=== PATIENT | female | born 1955 ===

== ENCOUNTER 2017-11-10 16:25 | Observation (INO) | payer OTHER ==
[2017-11-10 17:43] LABS: CKMB 2.6 ng/mL (0-6.6); Troponin I Less than 0.010 ng/mL (< 0.028)
[2017-11-10] MEDS ORDERED: Ondansetron HCl/PF 4 MG/2 ML Vial IVP PRN (19:37)
[2017-11-10] MEDS ORDERED: Acetaminophen 325 MG TAB PO PRN (19:37)
[2017-11-10] MEDS ORDERED: Ondansetron ODT 4 MG TAB SL PRN (19:37)
[2017-11-10] MEDS ORDERED: Nitroglycerin 0.4 MG TAB (25 Tab Bottle) PO PRN (19:38)
[2017-11-10 21:30] LABS: CKMB 2.7 ng/mL (0-6.6); Troponin I Less than 0.010 ng/mL (< 0.028)
[2017-11-10 22:00] VITALS: BMI 27.8
[2017-11-11 05:08] LABS: Cardiac Risk 3.4 (Less than 4.5)
--- NOTE | 2017-11-11 09:02 | HP ---
CHIEF COMPLAINT: Chest pain. HISTORY OF PRESENT ILLNESS: This patient is a 62-year-old female who was in her usual state of good health until Sunday, which was 5 days ago at which time the patient was on an exercise bicycle for 2 -3 minutes. She subsequently developed a sensation of tachycardia, shortness of breath and dyspnea i n addition to substernal chest pain described as a tightness. She had no significant resolution with cessation. She continued to have intermittent tightness of her chest off and on that was occasional ly occurring at rest and at random times. This morning, the patient was walking her dog when she had an episode of generalized lightheadedness. She was still having some of the intermittent chest pain symptoms as well. She had no associated shortness of breath. She got home and checked her blood pr essure which was running higher than her baseline of 120-140 in the range of 150-170. She subsequent ly presented to the emergency department in [place] and was subsequently transferred here. The pat keven currently reports that she is pain free. Of note, the patient had an appointment scheduled for Sunday with Dr. Syed and Cardiology. REVIEW OF SYSTEMS: Only notable for the chest pain, shortness of breath. She also had some numbness and tingling in her left arm medial following the ulnar nerve distribution. Otherwise, a 10-system review was negative except for those things mentioned in history of present illness. PAST MEDICAL HISTORY: Notable for rheumatoid arthritis, migraines which were improved with a gluten- free diet and meloxicam use to treat her rheumatoid. She also had a history of some palpitations abo ut 20 years ago. PAST SURGICAL HISTORY: Notable for a partial hysterectomy secondary to fibroids with remaining ovary 22 years ago. She also had a wisdom tooth extraction. FAMILY HISTORY: Father is with heart failure at the age of 74. Mother had Alzheimer's and lived to . She has 2 brothers with some hypertension and sleep apnea. She has 2 sisters, one had myocardial infarction and CVA and is . She has had a renal tumor. She has another with diab etes and hypertension. SOCIAL HISTORY: Patient is a smoker, but has had significant secondhand exposure. Denies alcohol or drugs. She is and lives with her and 20-year-old son. The son does tend to be a bi t of psychosocial stressor for the patient as he is involved in known drug use. ALLERGIES: PLAQUENIL, which causes a rash. MEDICATIONS: Meloxicam for rheumatoid arthritis, baclofen for occasional spasms, guaifenesin, fish o il, CoQ10 and turmeric. PHYSICAL EXAMINATION: VITAL SIGNS: BP is 168/84, pulse 71, respirations 19, temperature 98.4, O2 sat 98%. GENERAL APPEARANCE: Age appropriate female, in no distress. She is awake, alert, oriented, very ple asant, cooperative. HEENT: PERRL. No OP lesions. NECK: Supple and symmetric with no lymphadenopathy, JVD, or carotid bruits. CARDIOVASCULAR: Regular rate and rhythm without murmurs, gallops or rubs. LUNGS: Clear to auscultation bilaterally with good chest wall expansion and air exchange. ABDOMEN: Soft, nontender, nondistended, positive bowel sounds, no masses, no organomegaly. EXTREMITIES: Warm and dry with no significant edema. NEUROLOGIC: The patient appears to be grossly intact with no focal deficits. LABORATORY DATA: Troponin is less than 0.01. BNP is 47. Labs from [place] were reviewed in ED an d were normal otherwise. IMPRESSION AND PLAN: 1. Chest pain. The patient had onset of chest pain initially with some exertion, but has had some i ntermittently since that time. Today, she has had an associated episode of lightheadedness. She jeanette l be admitted to the hospital where we will do serial cardiac isoenzymes. We will order a stress chelle t for the morning. Keep her on telemetry through the night and consult Cardiology. 2. Rheumatoid arthritis. We will continue with the patient's usual home medications which is specif ically the meloxicam. DISPOSITION: The patient is a FULL CODE. Her surrogate decision maker would be Brendon Jaimes at [phone], is her . Her primary care provider is Naomi Morocho who is a retired nurse practit trell.
--- NOTE | 2017-11-11 14:44 | NM ---
MYOCARDIAL PERFUSION SCAN: Date: 11/11/17 PROVIDED CLINICAL HISTORY: Chest pain. RADIOPHARMACEUTICAL: 30 mCi technetium-99m labeled sestamibi IV at stress. 10.2 mCi technetium-99m labeled sestamibi IV at rest. FINDINGS: There is normal, homogeneous distribution of radiotracer throughout the left ventricular myocardium a t both stress and rest. Gated data demonstrate wall motion and thickening with calculated LVEF of 77% . TID is 0.93. IMPRESSION: 1. No scintigraphic evidence for ischemia. 2. Calculated LVEF of 77%. POS: [facility]
[2017-11-11 16:12] VITALS: BP 135/68; TEMP 98.5
--- NOTE | 2017-11-12 00:05 | DIS ---
DATE OF ADMISSION: 11/10/2017 DATE OF DISCHARGE: 11/11/2017 DISCHARGE DIAGNOSES: 1. Chest pain. 2. Rheumatoid arthritis. STUDIES: Nuclear medicine stress test with no evidence of ischemia and ejection fraction of 77%. HISTORY OF PRESENT ILLNESS: This patient is a 62-year-old female who presented to the Emergency Depa rtment with the complaint of some chest discomfort. The patient reported that she had developed some discomfort in her chest using a stationary bicycle several days prior. She had had some intermitten tly since that time. She noted on the day of admission that she had some persistent pain with walkin g her dog that morning, but also developed some lightheadedness and subsequently presented [facility]. In the emergency department, patient had a negative cardiac isoenzymes and nondia gnostic EKG. Physical exam was only notable for some tenderness in the chest wall. HOSPITAL COURSE: The patient was placed in observation overnight. She was on telemetry, had no sign ificant arrhythmia. She had negative serial isoenzymes. She underwent a nuclear medicine stress chelle t which was negative for ischemia and had an ejection fraction of 77%. The patient felt increasingly like her symptoms might be related to some musculoskeletal inflammation related to her rheumatoid ar thritis. PHYSICAL EXAMINATION: VITAL SIGNS: On the day of discharge, temperature was 98.0, pulse 74, respirations 20, O2 sat 98% on room air, BP was 117/60 up to 156/76. GENERAL: The patient was awake, alert, oriented, very pleasant, cooperative. HEART: Regular rate and rhythm. No murmurs, gallops or rubs. LUNGS: Clear bilaterally. ABDOMEN: Soft and nontender with positive bowel sounds. MUSCULOSKELETAL: Exam did reveal slight tenderness to palpation in the parasternal area, more on the right than the left. DISPOSITION: The patient will be discharged to home. DISCHARGE MEDICATIONS: She is to continue with her usual home medications including Mobic 7.5 mg p.o . every day. We discussed the option of possibly going to twice a day on this to treat the musculosk eletal type symptoms. She will continue flaxseed oil, guaifenesin, turmeric, baclofen 10 mg b.i.d. p .r.n., fish oil, aspirin 325 every day, CoQ10 and multivitamin 1 p.o. q.2 days. DISCHARGE INSTRUCTIONS: She has a standing appointment with Dr. Syed tomorrow which she is encourage d to keep and she is also encouraged to follow up with her PCP or to establish with one. She is enco uraged to return to the emergency department should she have any problems prior to her follow up.
== END 2017-11-11 16:37 | disposition home or self-care (01) ==
LOC: ERS 16:25 → 2SW 18:00
PROVIDERS: ADMIT Internal Medicine; ATTEND Internal Medicine
DX: R07.9 Chest pain, unspecified (principal); M06.9 Rheumatoid arthritis, unspecified; F17.200 Nicotine dependence, unspecified, uncomplicated; Z88.8 Allergy status to other drugs, medicaments and biological substances; Z79.899 Other long term (current) drug therapy
CPT/HCPCS: 36415; 78452; 80061; 82553; 83880; 84484; 93005; 93017; 94760; A4216; A9500; G0378